=== PATIENT | female | born 1985 | race Two or more races ===

== ENCOUNTER 2025-02-23 10:00 | Emergency (ER) | payer MEDICAID, OTHER ==
[~2025-02-23] VITALS: Ht 167.6 cm; Wt 64.7 kg
--- NOTE | 2025-02-23 10:13 | ECG ---
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
--- NOTE | 2025-02-23 12:00 | ED.PDOC ---
HPI (NEURO) HPI Comments This is a 39 year old female presenting to the ED with chief complaint of dizziness. Patient reports that she has been experiencing dizziness with associated headache, imbalance, and left sided abdominal pain for the past 2 days. Patient relays that she has also had an unrelated right foot pain since stepping on an object a month ago. Patient denies any N/V/D, chest pain, SOB, fever, chills, or dysuria. 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 Family History Family History: Reviewed,noncontributory to illness Social History Smoker: Non-Smoker Alcohol: Denies ETOH Use Drugs: Denies Drug Use Lives In: Home Constitutional: denies: chills, diaphoresis, fatigue, fever, malaise, sweats, weakness, others EENTM: denies: blurred vision, double vision, ear bleeding, ear discharge, ear drainage, ear pain, ear ringing, eye pain, eye redness, hearing loss, mouth pain, mouth swelling, nasal discharge, nose bleeding, nose congestion, nose pain, photophobia, tearing, throat pain, throat swelling, voice changes, others Respiratory: denies: cough, hemoptysis, orthopnea, SOB at rest, shortness of breath, SOB with excertion, stridor, wheezing, others Cardiovascular: denies: chest pain, dizzy spells, diaphoresis, Dyspnea on exertion, edema, irregular heart beat, left arm pain, lightheadedness, palpitations, PND, syncope, others Gastrointestinal: reports: abdominal pain; denies: abdomen distended, blood streaked bowels, constipated, diarrhea, dysphagia, difficulty swallowing, hematemesis, melena, nausea, poor appetite, poor fluid intake, rectal bleeding, rectal pain, vomiting, others Genitourinary: denies: abnormal vagina bleeding, burning, dyspareunia, dysuria, flank pain, frequency, hematuria, incontinence, pain, , vagina discharge, urgency, others Neurological: reports: dizziness, headache; denies: fainting, left sided numbness, left sided weakness, numbness, paresthesia, pre-existing deficit, right sided numbness, right sided weakness, seizure, speech problems, tingling, tremors, weakness, others Musculoskeletal: denies: back pain, gout, joint pain, joint swelling, muscle pain, muscle stiffness, neck pain, others Integumetry: reports: others (Rt foot pain); denies: bruises, change in color, change in hair/nails, dryness, laceration, lesions, lumps, rash, wounds Allergic/Immunocompromised: denies: Difficulty Healing, Frequent Infections, Hives, Itching, others Hematologic/Lymphatic: denies: anemia, blood clots, easy bleeding, easy bruising, swollen glands, others Endocrine: denies: excessive hunger, excessive sweating, excessive thirst, excessive urination, flushing, intolerance to cold, intolerance to heat, unexplained weight gain, unexplained weight loss, others Psychiatric: denies: anxiety, bipolar disorder, depression, hopeless, panic disorder, schizophrenia, sleepless, suicidal, others All Other Systems: Reviewed and Negative Physical Exam General Appearance: No Apparent Distress, Normal HEENT: Normal ENT Inspection, PERRL/EOMI, Pharynx Normal, TMs Normal Neck: Full Range of Motion, Non-Tender, Normal, Normal Inspection Respiratory: Chest Non-Tender, Lungs Clear, No Accessory Muscle Use, No Respiratory Distress, Normal Breath Sounds Cardiovascular: No Edema, No JVD, No Murmur, No Gallop, Normal Peripheral Pulses, Regular Rate/Rhythm Breast Exam: Deferred Gastrointestinal: No Organomegaly, Non Tender, No Pulsatile Mass, Normal Bowel Sounds, Soft Genitalia: Deferred Pelvic: Deferred Rectal: Deferred Extremities: No calf tenderness, Normal capillary refill, Normal inspection, Normal range of motion, Non-tender, No pedal edema Musculoskeletal : Location: Right Extremity Location: Foot Apperance: Limited ROM, Tenderness: Moderate, Other (Exquisite tenderness distal aspect proximal to the big toe there is small skin lesion which could be a foreign body) Neurologic: Alert, 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 Was a procedure done?: No Differential Diagnosis (SZ) Seizure: N/A CVA: Electrolyte Imbalance General Weakness: Anemia, Dehydration, Electrolyte imbalance, Hypoglycemia, Hypotension, Hypovolemia, Labyrinthitis, Vertigo: peripheral, Vestibular neuronitis Headache: Migraine X-Ray, Labs, Meds, VS Vital Signs Date Time Temp Pulse Resp B/P (MAP) Pulse Ox O2 Delivery O2 Flow Rate FiO2 02/23/25 12:54 97.4 87 18 109/73 (85) 93 97.4 02/23/25 12:07 63 02/23/25 10:07 63 02/23/25 10:06 97.3 74 18 103/66 97 97.3 Lab Test 02/23/25 12:11 02/23/25 10:10 Range/Units White Blood Count 5.1 4.4-10.8 10^3/uL Red Blood Count 4.73 4.0-5.20 10^6/uL Hemoglobin 13.8 12.2-16.2 g/dL Hematocrit 39.6 36.0-46.0 % Mean Corpuscular Volume 83.7 80.0-100.0 fL Mean Corpuscular Hemoglobin 29.3 28.0-32.0 pg Mean Corpuscular Hemoglobin Concent 35.0 32.0-36.0 g/dL Red Cell Distribution Width 14.5 H 11.8-14.3 % Platelet Count 265 140-450 10^3/uL Mean Platelet Volume 7.2 6.9-10.8 fL Neutrophils (%) (Auto) 37.0-80.0 % Lymphocytes (%) (Auto) 10.0-50.0 % Monocytes (%) (Auto) 0.0-12.0 % Eosinophils (%) (Auto) 0.0-7.0 % Basophils (%) (Auto) 0.0-2.0 % Neutrophils # (Auto) 1.6-8.6 10 ^3/uL Lymphocytes # (Auto) 0.4-5.4 10 ^3/uL Monocytes # (Auto) 0-1.3 10 ^3/uL Differential Total Cells Counted 100.0 100 Neutrophils % (Manual) 41 37.0-80.0 Band Neutrophils % (Manual) 0 Lymphocytes % (Manual) 37 10.0-50.0 Monocytes % (Manual) 10 0-12 Eosinophils % (Manual) 12 H 0-7 Basophils % (Manual) 0 0.0-2.0 Metamyelocytes % (manual) 0 Myelocytes % (Manual) 0 Promyelocytes % (Manual) 0 Blast Cells % (Manual) 0 Reactive Lymphocytes 0 Platelet Estimate Adequate Sodium Level 142 136-145 mmol/L Potassium Level 4.0 3.5-5.1 mmol/L Chloride Level 104 98-107 mmol/L Carbon Dioxide Level 29 20-31 mmol/L Anion Gap 9 5-15 Blood Urea Nitrogen 6 L 9-23 mg/dL Creatinine 0.81 0.550-1.02 mg/dL Glomerular Filtration Rate Calc 96 >90 mL/min BUN/Creatinine Ratio 7.4 L 10.0-20.0 Serum Glucose 81 74-106 mg/dL Calcium Level 9.3 8.7-10.4 mg/dL Magnesium Level 1.8 1.6-2.6 mg/dL Lipase 26 12-53 U/L Beta HCG, Quantitative 1.0 L 1.5-4.2 mIU/mL POC Glucose 100 70-106 mg/dl Current Medications Medications (Trade) Dose Ordered Sig/Ray Route Start Time Stop Time Status Last Admin Sodium Chloride 1,000 ml @ 150 mls/hr Q6H40M ONCE IV 02/23/25 12:15 02/23/25 18:54 02/23/25 12:36 Ketorolac Tromethamine (Toradol Injection) 30 mg ONCE ONCE IV 02/23/25 12:15 02/23/25 12:28 DC 02/23/25 12:40 Meclizine HCl (Antivert Tablet) 50 mg ONCE ONCE PO 02/23/25 12:15 02/23/25 12:28 DC 02/23/25 12:40 X-Ray, Labs, Meds, VS Comment Course in the emergency department eventful patient came in because of dizziness headaches abdominal cramps and also pain to her left foot when she walks EKG shows normal sinus rhythm at 63 CBC normal BNP normal Lipase 26 Beta hCG negative X-ray of the foot does not show any foreign body Patient will be discharged home to follow up with her PCP Time of 1ST Reevaluation: 12:58 Reevaluation 1ST: Unchanged Time of 2ND Reevaluation: 15:48 Reevaluation 2ND: Improved Patient Education/Counseling: Diagnosis, Treatment, Prognosis, Need For Follow Up Family Education/Counseling: Diagnosis, Treatment, Prognosis, Need For Follow Up, No Family Present Departure 1 Departure Time of Disposition: 15:45 Impression: Primary Impression: Positional vertigo Additional Impression: Plantar wart of right foot Ruled Out: Foreign body Disposition: 01 HOME / SELF CARE / HOMELESS Condition: Fair Additional Instructions: Soak the foot in hot water and follow up with your PCP Take your medication as directed e-Prescriptions Meclizine HCl (Antivert) 25 Mg Chw 25 MG PO QID for 5 Days, #20 TAB.CHEW Prov: LAVON MORTENSEN MD 02/23/25 Naproxen (Naproxen) 375 Mg Tab 375 MG PO TID PRN for 5 Days, #15 TAB Prov: LAVON MORTENSEN MD 02/23/25 Discharged With: Self Critical Care Note Critical Care Time?: No Stability Stability form required: No Heart Score Heart Score: Heart Score Response (Comments) Value History N/A 0 EKG N/A 0 Age <45 0 Risk Factors No known risk factors 0 Troponin N/A 0 Total 0 I personally scribed for LAVON MORTENSEN MD ([email or web address]) on 02/23/25 at 12:00. Electronically submitted by Sandro Contreras ([email or web address]). LAVON MORTENSEN MD Feb 23, 2025 12:00
[2025-02-23 12:25] LABS: Hematocrit 39.6 % (36.0-46.0); Hemoglobin 13.8 g/dL (12.2-16.2); Mean Corpuscular Hemoglobin 29.3 pg (28.0-32.0); Mean Corpuscular Volume 83.7 fL (80.0-100.0)
[2025-02-23 12:34] LABS: Chloride 104 mmol/L (98-107)
[2025-02-23 12:35] LABS: Potassium 4.0 mmol/L (3.5-5.1); Sodium 142 mmol/L (136-145)
[2025-02-23 12:36] LABS: Calcium 9.3 mg/dL (8.7-10.4)
[2025-02-23] MEDS: SODIUM CHLORIDE 0.9% 1,000 ML IV ONE (12:36)
[2025-02-23] MEDS: MECLIZINE HCL 25 MG TAB PO ONE (12:40)
[2025-02-23] MEDS: KETOROLAC TROMETH 30 MG/ML 1ML VIAL IV ONE (12:40)
[2025-02-23 12:41] LABS: BUN/Creatinine Ratio 7.4 (10.0-20.0); Blood Urea Nitrogen 6 mg/dL (9-23); Glucose 81 mg/dL (74-106); Lipase 26 U/L (12-53); Magnesium 1.8 mg/dL (1.6-2.6)
[2025-02-23 12:45] LABS: Anion Gap 9 (5-15); Carbon Dioxide 29 mmol/L (20-31)
[2025-02-23 12:54] VITALS: BP 109/73; PULSE 87; RESP 18; TEMP 97.4; O2SAT 93
[2025-02-23 13:24] LABS: Total Cells Counted 100.0 (100)
--- NOTE | 2025-02-23 13:46 | DVH ---
EXAM: XY R FOOT 3 VIEW XRAY CLINICAL INDICATION: Possible foreign body TECHNIQUE: XY R FOOT 3 VIEW XRAY Comparison: None FINDINGS/IMPRESSION: There is no evidence of acute fracture or dislocation. The visualized joint space is well maintained. The alignment is anatomical. There is no radiopaque foreign body.
[2025-02-23] MEDS ORDERED: MECL25CH85 PO (15:47)
[2025-02-23] MEDS ORDERED: NAPR-957 PO (15:47)
== END 2025-02-23 16:35 | disposition left against medical advice (07) ==
LOC: ER 10:00
DX: H81.10 Benign paroxysmal vertigo, unspecified ear (principal); B07.0 Plantar wart; Z79.899 Other long term (current) drug therapy
CPT/HCPCS: 36415; 73630; 80048; 82947; 83690; 83735; 84702; 85007; 85027; 93005; 96361; 96374; 99285; J1885; J7030; J8597; 82962